=== PATIENT | female | born 1990 | race Caucasian/White ===

== ENCOUNTER 2019-11-03 14:07 | Emergency (ER) | payer SELFPAY ==
[~2019-11-03] VITALS: Ht 154.9 cm; Wt 40.9 kg
[2019-11-03 14:16] VITALS: TEMP 99.2
[2019-11-03 15:28] VITALS: PULSE 90
== END 2019-11-03 15:34 | disposition home or self-care (01) ==
LOC: COL.ER 14:07
DX: J10.1 Influenza due to other identified influenza virus with other respiratory manifestations (principal); F17.210 Nicotine dependence, cigarettes, uncomplicated